=== PATIENT | female | born 1965 | race Caucasian/White ===

== ENCOUNTER 2022-07-13 09:30 | Outpatient (CLI) | payer OTHER, SELFPAY ==
[2022-07-13 13:45] LABS: INR 1.06 (0.91-1.10); Partial Thromboplastin Time* 30 Seconds (23-33); Prothrombin Time 14.3 Seconds
[2022-07-13 14:43] LABS: Hepatitis C Virus Antibody* Negative (Negative)
[2022-07-13 15:14] LABS: Albumin* 4.5 g/dL (3.3-5.0); Chloride* 102 mmol/L (96-114); Sodium* 139 mmol/L (135-149)
[2022-07-13 15:15] LABS: Potassium* 4.3 mmol/L (3.6-5.1)
[2022-07-13 15:16] LABS: Amylase* 91 U/L (18-89)
[2022-07-13 15:17] LABS: Alanine Aminotransferase* 43 U/L (4-35); Alkaline Phosphatase* 55 U/L (40-150); Aspartate Amino Transferase* 29 U/L (12-35); Bilirubin Total* 0.5 mg/dL (0.1-1.5); Blood Urea Nitrogen* 14 mg/dL (7-30); Calcium* 9.4 mg/dL (8.4-10.6); Carbon Dioxide* 30 mmol/L (20-32); Cholesterol* 268 mg/dL (90-199); Creatinine* 0.6 mg/dL (0.5-1.5); Estimated Glomerular Filt Rate 104 ml/min; Glucose* 95 mg/dL (60-115); HDL Cholesterol* 73 mg/dL (>=50); Lipase* 100 U/L (23-300); Total Protein* 6.9 g/dL (6.0-8.3)
[2022-07-13 15:18] LABS: LDL Cholesterol Calculated 175 mg/dL (<100); Triglycerides* 102 mg/dL (40-149)
--- NOTE | 2022-07-15 09:49 | ONC.NURNOTE ---
Patient was referred to us for a superficial venous thrombosis of the arm. Reading through note it appears that patient is being seen by a medical oncologist. Simulation Analyst called patient and she is being seen by [facility] in [place], she was told that they would be able to address this rather than setting up a new consultation. Patient would prefer this, so [place] office was called and notified that this referal needs to be sent to them.
== END 2022-07-13 09:31 | disposition home or self-care (01) ==
PROVIDERS: PCP Family Medicine; Visit Provider Family Medicine
DX: Z01.419 Encounter for gynecological examination (general) (routine) without abnormal findings (principal); R53.83 Other fatigue; I82.619 Acute embolism and thrombosis of superficial veins of unspecified upper extremity; Z13.6 Encounter for screening for cardiovascular disorders; Z87.19 Personal history of other diseases of the digestive system; Z11.59 Encounter for screening for other viral diseases
CPT/HCPCS: 80053; 80061; 82150; 83690; 84443; 85610; 85730; 86803

== ENCOUNTER 2023-03-12 10:20 | Outpatient (CLI) | payer OTHER, SELFPAY ==
[2023-03-12 13:12] LABS: Magnesium* 1.9 mg/dL (1.5-2.6)
[2023-03-12 13:51] LABS: Ferritin* 52.5 ng/mL (11.1-264.0)
== END 2023-03-12 10:21 | disposition home or self-care (01) ==
PROVIDERS: PCP Family Medicine; Visit Provider Family Medicine
DX: R19.7 Diarrhea, unspecified (principal); R53.83 Other fatigue; E78.5 Hyperlipidemia, unspecified; E55.9 Vitamin D deficiency, unspecified; R63.5 Abnormal weight gain
CPT/HCPCS: 80053; 82150; 82728; 83690; 83735; 84443

== ENCOUNTER 2023-03-16 13:52 | Outpatient (CLI) | payer OTHER, SELFPAY ==
--- OUTSIDE RECORDS SUMMARY | 2023-03-19 17:28 | XMS_ITS | Patient Health Record ---
Author Name Unknown Organization [employer] e Address [address] [address] Care Team Providers Care Brinell Tester Name Role Phone Facundo Elva Unavailable [phone] Chan Liriano Unavailable [phone] Tayo Do Unavailable [phone] Katy Zaragoza Unavailable [phone] [place] [facility] Emergency Department, Mammography Unavailable Unav ailable Kelly Conner Unavailable Unavailable Ирина Henriquez Unavailable [phone] Monica Tellez Unavailable [phone] PROBLEMS Type Condition ICD9-CM Code [id number] Code Onset Dates Condition Status W/U Status Risk SNOMED Code Notes Problem Endometrial cancer C54.1 confirmed 552963838 Problem Symptomatic 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 confirmed 761499547 Problem Menopausal and female climacteric states N95.1 confirmed 215721001 Problem Excessive or frequent menstruation N92.0 confirmed 507942825 Problem Postmenopausa l bleeding N95.0 confirmed 16088187 Problem Endometrial 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 [address] [place], [place] [id number] Jul, Elva Loredo [facility] [address] [place] [address] Jun, Elva Loredo Symptomatic 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 and Endometrial cancer C54.[address] [facility] [address] [place], [place] [id number] Jun, Mammography [facility] Breast cancer screening Z12.[address] [facility] [address] [place], [place] [id number] Nov, [address] [place] [phone] Aug, [facility] [address] [place], [place] [id number] Apr, Tayo [address] [place] [phone] January, [facility] [address] [place], [place] [id number] Dec, [facility] Endometrial carcinoma C54.[address] [place] [phone] Dec, [facility] [address] [place], [place] [id number] Dec, [facility] [address] [place], [place] [id number] Dec, [facility] Endometrial cancer C54.1 [facility] [address] [place] [address] Dec, Tayo [place] Postmenopausal bleeding N95.0 and Endometrial adenocarcinoma C54.[address] [facility] [address] [place], [place] [id number] Dec, Tayo [place] Mass of urethra N36.8 ; Urethral diverticulum N36.1 and Excessive or frequent menstruation N92.0 [place] [address] [place], [place] [id number] Dec, Tayo [facility] [address] [place], [place] [address] [facility] [address] [place] [phone] Dec, Tayo [facility] [address] [place], [place] [id number] Nov, Tayo Agarwalford [facility] [address] [place] [address] Nov, Tayo Agarwalford Hematuria R31.[address] [facility] [address] [place], [place] [id number] Nov, Tayo Agarwalford Hematuria R31.9 and Postmenopausal bleeding N95.0 [place] [address] [place], [place] [id number] Nov, Tayo Agarwalford Postmenopausal bleeding N95.0 and Fibroid D21.9 [address] [facility] [address] [place] [phone] Nov, Tayo [facility] [address] [place], [place] [id number] Jun, Tayo [address] [place] [phone] Jun, Tayo [facility] [address] [place], [place] [id number] Jun, Tayo [place] Acute vulvitis N76.[address] [place] [phone] Jun, Tayo [address] [facility] [address] [place] [phone] Jun, Tayo [facility] [address] [place], [place] [id number] May, Tayo [place] Vulvar cyst N90.[address] [facility] [address] [place], [place] [id number] May, Tayo [place] Fibroid D21.9 and Menopause Z78.0 [place] [address] [place], [place] [id number] 29 May, 2020 Tayo Do Fibroid D21.[address] [facility] [address] [place], [place] [id number] 29 May, 2020 Mammography [facility] Breast cancer screening Z12.31 [facility] [address] [place] [address] [place] [phone] 16 May, 2020 [facility] [address] [place] [id number] 15 May, 2020 Tayo Do Menopausal and female climacteric states N95.1 ; Thyroid disorder screening Z13.29 ; Cervical cancer screening Z12.4 and Encounter for screening for human papillomavirus (HPV) Z11.[address] [facility] [address] [place], [place] [id number] 15 May, 2020 Tayo Agarwalford Pain passing urine R30.9 ; Vulvar cyst N90.7 ; Fibroid D21.9 ; Hot flashes R23.2 and Annual visit for general adult medical examination with abnormal findings Z00.[address] [facility] [address] [place] [id number] Apr, Tayo Do [facility] [address] [place] [address] [place] [phone] Jul, Kelly Conner [facility] [address] [place] [address] [place] [phone] Jun, Kellyalicja Conner [address] [place] [phone] May, Kellyalicja Conner [facility] [address] [place] [address] [place] [phone] Mar, Kelly Conner [facility] [address] [place], [place] [id number] Mar, Ирина Henriquez [facility] [address] [place], [place] [id number] Feb, Kelly Ubaldo [facility] [address] [place], [place] [id number] Feb, Ирина Henriquez Breast cancer screening Z12.31 [facility] [address] [place] [address] January, Monica Tellez [facility] [address] [place] [address] January, Monica Tellez [facility] [address] [place], [place] [id number] January, Tayo Do Fibroids D21.[address] [facility] [address] [place], [place] [id number] January, Tayo Do Burning with urination R30.0 SOCIAL HISTORY Tobacco Use: Social History Observation Description Date Details (start date - stop date) Never Smoker Sex Assigned At : Social History Observation Description Sex Assigned At Unknown Alcohol Screen (Audit-C) Question Answer Notes Did you have a drink containing alcohol in the p ast year? Yes Points 0 Interpretation Negative Tobacco Use/Smoking Question Answer Notes Are you a never smoker REASON FOR REFERRAL from 1965 to 2023-03-19 Reason [place] [facility] Diagnosis 1 Endometrial cancer ( C54.1) Referral Organization [facility] Referring Provider First Name Tayo Referring Provider Last Name [place] Referring Provider Specialty Obstetricia n and equipment operator wage hand Referred Provider Specialty Oncology Referral Priority Routine General Notes Referral submitted v [facility] website. Logan Sloan 01/02/2021 10:17:23 AM > Logan Sloan 03/11/2021 3:50:08 PM >Patient was seen at [facility] on 02/15 instead. Note is on file and routed to provider. Reason [facility] er Diagnosis 1 Endometrial cancer ( C54.1) Referral Organization [facility] Referring Provider First Name Tayo Referring Provider Last Name [place] Referring Provider Specialty Obstetricia n and equipment operator wage hand Referred Provider Specialty Oncology Referral Priority Routine General Notes Cancer Clinic ([facility]) [facility] Surgery [address] [address] Appointments, Provider Referrals and Information: [phone] New Patient Appointments: [phone] Logan Sloan 01/02/2021 10:20:57 AM >faxed Nathalia,Ia 03/14/2021 9:22:40 AM >patient was seen on 01/14/2021. Note rcvd. VITAL SIGNS from 1965 to 2023-03-19 Height 61.0 in Jun, Weight 143.8 lbs Jun, BMI 27.17 kg/m2 Jun, Blood pressure systolic 102 mm Hg Jun, Blood pressure diastolic 62 mm Hg Jun, MEDICATIONS Medication SIG (Take, Route, Frequency, Duration) Notes Start Date End Date Status Multivitamin Active RESULTS from 1965 to 2023-03-19 Component Value Reference Range Notes MRI : Abdomen Reviewed date:01/03/2021 16:34:29 Interpretation: Performing Lab: Notes/Report: TISSUE PATHOLOGY Reviewed date:01/02/2021 08:39:10 Interpretation: Performing Lab:, [place], [facility], OpkzcmzoycMB[address] Georgi Cardona Notes/Report: CLINICAL INFORMATION PATHOLOGIST REPORT NOTES CYTOLOGY, NON-CAN FILLING AND CLOSING MACHINE TENDER Reviewed date:12/31/2020 15:01:49 Interpretation: Performing Lab:, [place], [facility]-[id number], RvtnbrioitXQ[address] Georgi Cardona Notes/Report: PATHOLOGIST NON-CAN FILLING AND CLOSING MACHINE TENDER, SPECIMEN A Reviewed date:01/03/2021 16:36:53 Interpretation: Performing Lab:, [place], [facility], UvvwgtqwtqUS[address] Georgi Cardona Notes/Report: A DIAGNOSIS A GROSS DESCRIPTION A SOURCE TISSUE, 2 SPECIMENS (+2 unit s) Reviewed date:01/03/2021 16:36:53 Interpretation: Performing Lab:, [place], [facility], [id number] Georgi Cardona Notes/Report: B COMMENT B DIAGNOSIS B GROSS DESCRIPTION B SOURCE MRI : Pelvis Reviewed date:01/03/2021 16:33:47 Interpretation: Performing Lab: Notes/Report: CULTURE, URINE, ROUTINE Reviewed date:12/10/2020 10:12:55 Interpretation: Performing Lab:, [place], [facility], [place] Baldwin[place]ajLI[address] Georgi Cardona M.D. Notes/Report: CULTURE, URINE, ROUTINE SEE NOTE TISSUE, SPECIMEN A Reviewed date:06/20/2020 18:57:41 Interpretation: Performing Lab:, [place], [facility]-[address], IfyrlxezaeRR[address] Georgi Cardona Notes/Report: A DIAGNOSIS A GROSS DESCRIPTION A SOURCE TISSUE PATHOLOGY Reviewed date:06/20/2020 18:57:41 Interpretation: Performing Lab:, [place], [facility]-[address], LtoewpifdzNU[address] Georgi Cardona Notes/Report: CLINICAL INFORMATION PATHOLOGIST THINPREP TIS AND HPV mRNA E6 /E7 (30 yrs and over) Reviewed date:06/14/2020 17:35:50 Interpretation: Performing Lab:, [place], [facility], UytavvfsfqXU[address] Georgi Cardona Notes/Report: CLINICAL INFORMATION: COMMENT COMMENT: PRINTED CIRCUIT BOARDS CONTACT PRINTER: HPV mRNA E6/E7 Not Detected Not Detected INTERPRETATION/RESULT: LMP: PREV. BX: N/A PREV. PAP: SOURCE: STATEMENT OF ADEQUACY: T3, FREE Reviewed date:06/05/2020 08:50:51 Interpretation: Performing Lab:, [facility] [facility] WwovJY[address] Georgi Cardona M.D. Notes/Report: T3, FREE 2.8 pg/mL 2.3-4.2 pg/mL Cortisol (IH) Reviewed date:06/05/2020 08:50:51 Interpretation: Performing Lab:,Lab: Access 2 [employer], Access 2 Notes/Report: Cortisol 6.4 ug/dL 3.0 to 22.0 ug/dL DHEA-S (IH) Reviewed date:06/05/2020 08:50:51 Interpretation: Performing Lab:,Lab: Access 2 [employer], Access 2 Notes/Report: DHE-S 113 ug/dL 51 to 391 ug/dL FSH (IH) Reviewed date:06/05/2020 08:50:51 Interpretation: Performing Lab:,Lab: Access 2 [employer], Access 2 Notes/Report: hFSH 84.1 mIU/mL 1.8 to 22.5 mIU/mL LH (IH) Reviewed date:06/05/2020 08:50:51 Interpretation: Performing Lab:,Lab: Access 2 [employer], Access 2 Notes/Report: hLH 43.2 mIU/mL 2.1 to 103.3 mIU/mL Prolactin (IH) Reviewed date:06/05/2020 08:50:51 Interpretation: Performing Lab:,Lab: Access 2 [employer], Access 2 Notes/Report: PRL 8.0 ng/mL 2.7 to 26.7 ng/mL Testosterone, Total (IH) Reviewed date:06/05/2020 08:50:51 Interpretation: Performing Lab:,Lab: Access 2 [employer], Access 2 Notes/Report: Testo 23 ng/dL 70 to 150 ng/dL TSH (IH) Reviewed date:06/05/2020 08:50:51 Interpretation: Performing Lab:,Lab: Access 2 [employer], Access 2 Notes/Report: TSH3 1.73 uIU/mL 0.45 to 5.33 uIU/mL Sex Hormone Binding Globulin (IH) Reviewed date:06/05/2020 08:50:52 Interpretation: Performing Lab:,Lab: Access 2 [employer], Access 2 Notes/Report: SHBG 45 nmol/L 13 to 136 nmol/L Sensitive Estradiol (IH) Reviewed date:06/05/2020 08:50:52 Interpretation: Performing Lab:,Lab: Access 2 [employer], Access 2 Notes/Report: SNSE2 7 pg/mL 20 to 433 pg/mL Testosterone, Free (IH) Reviewed date:06/05/2020 08:50:52 Interpretation: Performing Lab:,Lab: Access 2 [employer], Access 2 Notes/Report: Fr Testo 1.76 pg/mL 0.20 to 5.50 pg/mL Urinalysis, Routine - IH Reviewed date:06/04/2020 12:12:07 Interpretation: Performing Lab:,Lab: [facility], [facility], Tenant Coordinator: 01 Notes/Report: Bilirubin neg Negative Blood neg Negative Glucose neg Negative Ketone neg Negative Leukocytes neg Negative Nitrite neg Negative pH 6.0 5.0 - 7.0 Protein neg Negative Specific [place] 1.010 1.000 - 1.030 Urobilinogen 0.2 mg/dL 0.2-1 mg/dL Urinalysis, Routine - IH Reviewed date:01/26/2019 08:20:54 Interpretation: Performing Lab:,Tenant Coordinator: 01 Notes/Report: Bilirubin neg Negative Blood neg Negative Glucose neg Negative Ketone neg Negative Leukocytes neg Negative Nitrite neg Negative pH 6.0 5.0 - 7.0 Protein neg Negative Specific [place] 1.030 1.000 - 1.030 Urobilinogen 0.2 mg/dL 0.2-1 mg/dL mg/dL REASON FOR VISIT No Information MEDICAL (GENERAL) HISTORY Type Description Date Medical History Chicken pox Surgical History hysterectomy Hospitalization History No know Hospitalization history MENTAL STATUS No Information ASSESSMENTS Encounter Date Diagnosis Assessment Notes Treatment Notes Treatment Clinical Notes Jun, Symptomatic postsurgical menopause (ICD-10 - E89.41) Jun, Endometrial cancer (ICD-10 - C54.1) Jun, Breast cancer screening (ICD-10 - Z12.31) Dec, Endometrial carcinoma (ICD-10 - C54.1) Dec, Other I have arranged for her to be be seen by [facility]. She will follow up PRN here. Taoy Do MD , Total face to face time 20 minutes, with >50% spent counseling regarding diagnosis, risk and benefits of various treatment plans and expected outcomes. Dec, Endometrial cancer (ICD-10 - C54.1) Dec, Other Endometrial bio psy shows endometrial carcinoma. Pending final report. She was previously scheduled for MRI to rule out urethral diverticulum. We will expand this to do ABD and pelvis as well to rule out lymphadenopathy or other signs of cancer. Follow up with me on Wednesday to discuss [facility] pathology and MRI as well as plans. She prefers to see a surgeon at the [facility]. Tayo Do MD , Total face to face time 30 minutes, with >50% spent counseling regarding diagnosis, risk and benefits of various treatment plans and expected outcomes. This visit was conducted with the use of audio and video telecommunications system that permits real time communication between the patient and provider. Patient consent for virtual visit was obtained. Originating site: [facility] Distant site: pt home Start time: 4:04 Stop time:4:40 Dec, Mass of urethra (ICD-10 - N36.8) Plan MRI to rule out urethral diverticulum. Tayo Do MD , Total face to face time 20 minutes, with >50% spent counseling regarding diagnosis, risk and benefits of various treatment plans and expected outcomes. Dec, Endometrial adenocarcinoma (ICD-10 - C54.1) Dec, Urethral diverticulum (ICD-10 - N36.1) Dec, Postmenopausal bleeding (ICD-10 - N95.0) Dec, Excessive or frequent menstruation (ICD-10 - N92.0) Nov, Hematuria (ICD-10 - R31.9) We discussed her concerns at great length. Plan Endosee of bladder and uterus wtih endometrial biopsy and urinary cytology. Tayo Do MD , Total face to face time 20minutes, with >50% spent counseling regarding diagnosis, risk and benefits of various treatment plans and expected outcomes. Nov, Hematuria (ICD-10 - R31.9) Nov, Postmenopausal bleeding (ICD-10 - N95.0) Nov, Fibroid (ICD-10 - D21.9) Nov, Postmenopausal bleeding (ICD-10 - N95.0) Jun, Acute vulvitis (ICD-10 - N76.2) Jun, Other Patient with cellulitis. I normally would treat with bactrrim DS and keflex. However, she is allergic to penicillin and sulfa. Plan clindamycin po and metrogel local. Dilfucan as she notes high frequency of yeast infections with antibiotics. Tayo Do MD , Total face to face time 25 minutes, with >50% spent counseling regarding diagnosis, risk and benefits of various treatment plans and expected outcomes. May, Breast cancer screening (ICD-10 - Z12.31) May, Fibroid (ICD-10 - D21.9) May, Vulvar cyst (ICD-10 - N90.7) May, Fibroid (ICD-10 - D21.9) May, Menopause (ICD-10 - Z78.0) May, Other Plan pelvic ult rasound every year. She notes hot flashes, decrease energy and low sex desire but has decided to observe. She does not desire therapy for this. Tayo Do MD , Total face to face time 15 minutes, with >50% spent counseling regarding diagnosis, risk and benefits of various treatment plans and expected outcomes. May, Pain passing urine (ICD-10 - R30.9) Plan pelvic ultrasound in 1 week to evaluat fibroid status. Also mammogram next week. See me after to discuss ultrasound and hormonal labs. Also for removal of vulvar cyst. Tayo Do MD , Total face to face time 15 minutes, with >50% spent counseling regarding diagnosis, risk and benefits of various treatment plans and expected outcomes. May, Menopausal and female climacteric states (ICD-10 - N95.1) May, Vulvar cyst (ICD-10 - N90.7) May, Thyroid disorder screening (ICD-10 - Z13.29) May, Cervical cancer screening (ICD-10 - Z12.4) May, Fibroid (ICD-10 - D21.9) May, Hot flashes (ICD-10 - R23.2) May, Encounter for screening for human papillomavirus (HPV) (ICD-10 - Z11.51) May, Annual visit for general adult medical examination with abnormal findings (ICD-10 - Z00.01) Jul, Other LHR #6 755 12mm 20j 20pw dental implants Jun, Other LHR Chin only , careful of tooth implants, 755 12mm 18j 20pw May, Other [facility] Chin 755 12 mm 17j 20pw Mar, Other LHR chin 755 12 mm 16j 20pw Feb, Breast cancer screening (ICD-10 - Z12.31) Feb, Other [facility] Chin 755 12 mm 15j 20pw January, Other LHR chin 755; 1 5mm; 14j; 20pw January, Fibroids (ICD-10 - D21.9) January, Burning with urination (ICD-10 - R30.0) Patient with complaint of pain with urination. Urinalysis is normal. Plan evauation with cystoscopy, urodynamics and postassium sensitivity test. Pelvic ultrasound ordered as well. Follow up in 6 weeks. Tayo Do MD , Total face to face time 15 minutes, with >50% spent counseling regarding diagnosis, risk and benefits of various treatment plans and expected outcomes. PLAN OF TREATMENT Treatment Notes Assessment Notes Clinical Notes Mass of urethra Plan MRI to rule out urethral diverticulum. Tayo Do MD , Total face to face time 20 minutes, with >50% spent counseling regarding diagnosis, risk and benefits of various treatment plans and expected outcomes. Pain passing urine Plan pelvic ultrasou nd in 1 week to evaluat fibroid status. Also mammogram next week. See me after to discuss ultrasound and hormonal labs. Also for removal of vulvar cyst. Tayo Do MD , Total face to face time 15 minutes, with >50% spent counseling regarding diagnosis, risk and benefits of various treatment plans and expected outcomes. Burning with urination Patient with comp laint of pain with urination. Urinalysis is normal. Plan evauation with cystoscopy, urodynamics and postassium sensitivity test. Pelvic ultrasound ordered as well. Follow up in 6 weeks. Tayo Do MD , Total face to face time 15 minutes, with >50% spent counseling regarding diagnosis, risk and benefits of various treatment plans and expected outcomes. Hematuria We discussed her con cerns at great length. Plan Endosee of bladder and uterus wtih endometrial biopsy and urinary cytology. Tayo Do MD , Total face to face time 20minutes, with >50% spent counseling regarding diagnosis, risk and benefits of various treatment plans and expected outcomes. Pending Tests Test Name Order Date MAMMOGRAM 2022-07-08 Referrals Referral Date Details [place] [facility] Insurance Providers Payer Name Payer Address Payer Phone Insured Name Patient Relationship to Insured Coverage Start Date Coverage End Date Subscriber Number Group Number [employer] 2020 [address] [facility] [address] Jens Dunne Self - patient is the insured 2 [id number]
--- OUTSIDE RECORDS SUMMARY | 2023-03-19 17:28 | XMS_ITS | Continuity of Care Document ---
Author Name Unknown Organization [facility] Address [address] [address] [place] [address] Phone Care Team Providers Care Contracts Paralegal Name Role Phone Timothy Saenz MD Unavailable Unavailable Allergies, Adverse Reactions, Alerts Substance Reaction Status Criticality ampicillin bad diarhea Active No Information Sulfa (Sulfonamide Antibiotics) Rash Active No Information PENICILLIN UnknownDiarrhea Active No Informati on Medications Medication Instructions Dosage Effective Dates (start - stop) Status Comments No Drug Therapy Prescribed Procedures Procedure Date New Level 3 or 30-44 min Advance Directives Directive Yes / No Effective Date File Name No Information Encounters Encounter Description Practice Location Reason(s) For Visit Diagnoses Date Provider Providers Copied on Encounter New Level 3 or 30-44 min [facility] [place], [address] [address], [place], [place], [id number], [phone] [facility] GI Symptoms or Concerns (chief complaint) Benign gastric polypAbdominal pain, unspecified abdominal location Dec-0 0 Dany Aguirre. [address], [id number], [place]. [phone] Referring Provider: Bernard Killian MD, [address], [place], [address]. tel:[phone] [facility] [place], [address] [address], [place], [id number], [phone] [facility] No Information Dec-0 0 Dany Aguirre. [address], [id number], [place]. tel:[phone] [facility], [address] [address], [place], [place], [id number], [place] tel:[phone] No Information 0 No Information Referring Provider: Bernard Killian MD, [address], [place], [address]. tel:[phone] Family History Family Member Type Diagnosis Age At Onset Mother Problem (finding) malignant neoplasm of p ancreas Father Problem (finding) prostate cancer Father Problem (finding) GERD Immunizations Vaccine Date Status Comments tetanus toxoid, reduced diphtheria toxoid, and acellular pertussis vaccine, adsorbed administered Note: [facility] bi-direct ional interface ; Source: Other Registry Payers Payer name Insurance type Covered libertarian ID Authoriza tion(s) [employer] CI [id number] Social History Type Description Quantity Date Captured Comments Alcohol Use Details Caffeine Use Details Unknown Tobacco Use Status Current non-smoker Smoking Status Never smoker Non-Smoking Tobacco Use Details : No Details Available : No Details Available Sex Female Vital Signs Date / Time: Height Weight BMI Pulse Rate Blood Pressure Temperature Respiratory Rate Body Surface Area Head Circumference Head Circ. Percentile Wt./Lonny. Percentile BMI percentile Pulse Ox Inhaled Ox 11:07 AM 62.00 in 70.307 kg (155.00 lbs) 28.3 5 kg/m eter (2) Chief Complaint And Reason For Visit From encounter dated 08/21/2020 11:01'. GI Symptoms or Concerns (chief complaint). Description: Ms. Dunne is having a virtual visit today at the request of Dr. Killian to discuss 2 different GI issues. One is gastric polyps. She used to have end[place]op[place]. On at least 1 occasion, there was a polyp that was biopsied. This year, she had an upper endoscopy that showed multiple sessile polyps in the stomach. None of them were biopsied. She is quite concerned about the appearance of many polyps and wonderswhat appropriate followup is. She also has an intermittent pain to the left of the umbilicus and above it. This is in a very discrete location that her fingertip can cover. It comes and goes over thecourse of several years. She recently had a normal CT scan of the abdomen. Her mother had pancreatic cancer. She has been eating very healthy recently and that helps control upper GI symptoms. She has been on a diet free of gluten, dairy, and sugar. She also has been taking turmeric and júnior. Shehas tried proton pump inhibitors intermittently, when traveling or during the spring and fall. These medications including Prilosec seemed to give her more bloating and gas. She overall feels that her GI system is quite healthy. She did just have a normal colonoscopy as well. Reason For Referral Reason For Referral No Information Plan Of Treatment Date Type Action Status No Information History Of Present Illness Encounter Date Complaint History Of Prese nt Illness GI Symptoms or Concerns Ms. Seng wilkes is having a virtual visit today at the request of Dr. Killian to discuss 2 different GI issues. One is gastric polyps. She used to have endoscopies yearly [place]. On at least 1 occasion, there was a polyp that was biopsied. This year, she had an upper endoscopy that showed multiple sessile polyps in the stomach. None of them were biopsied. She is quite concerned about the appearance of many polyps and wonders what appropriate followup is. She also has an intermittent pain to the left of the umbilicus and above it. This is in a very discrete location that her fingertip can cover. It comes and goes over the course of several years. She recently had a normal CT scan of the abdomen. Her mother had pancreatic cancer. She has been eating very healthy recently and that helps control upper GI symptoms. She has been on a diet free of gluten, dairy, and sugar. She also has been taking turmeric and júnior. She has tried proton pump inhibitors intermittentl Functional Status Date Functional Assessmen t No Information Medications Administered Medication Instructions Dosage Effective Dates (start - stop) Status Comments No Drug Therapy Prescribed Instructions Date Instruction Additional Infor mation No Information Assessments Type Assessment Date assessment Benign gastric polyp assessment Abdominal pain, unspecified abdo elodia location Patient Care Teams Name Effective Dates (start - stop) Status Members No Information
== END 2023-03-16 13:53 | disposition home or self-care (01) ==
LOC: NFLDREF 03-19 17:27
PROVIDERS: PCP Family Medicine; Referring Provider Family Medicine; Visit Provider Family Medicine
DX: R19.7 Diarrhea, unspecified (principal); R23.2 Flushing
CPT/HCPCS: 83497

== ENCOUNTER 2023-09-06 10:31 | Outpatient (CLI) | payer OTHER, SELFPAY | END 2023-09-06 10:32 | disposition home or self-care (01) | PROVIDERS: PCP Family Medicine; Visit Provider Family Medicine | DX: Z00.00 Encounter for general adult medical examination without abnormal findings (principal); R53.83 Other fatigue; E78.5 Hyperlipidemia, unspecified; E55.9 Vitamin D deficiency, unspecified; D72.819 Decreased white blood cell count, unspecified; R68.89 Other general symptoms and signs; R46.89 Other symptoms and signs involving appearance and behavior | CPT/HCPCS: 80053; 80061; 84443; 86376 ==

== ENCOUNTER 2024-01-10 14:41 | Outpatient (CLI) | payer OTHER, SELFPAY ==
--- OUTSIDE RECORDS SUMMARY | 2024-01-10 14:44 | XMS_ITS ---
Author Name Unknown Organization [facility] Address [address] [place] [address] Care Team Providers Care Fundraising Sale Representative Name Role Phone Unavailable Unavailable Unavailable Surgery Details Not on file Complications Check Surgery Details section. Procedure Estimated Blood Loss Check Surgery Details section. Procedure Findings Check Surgery Details section. Procedure Specimens Taken Check Surgery Details section.
--- OUTSIDE RECORDS SUMMARY | 2024-01-10 14:44 | XMS_ITS | Encounter Summary ---
Author Name Unknown Organization [facility] Address [address] [place] [address] Care Team Providers Care Building Insulation Installer Name Role Phone Elsewhere, Pcp Primary Care Provider Unavailabl e Encounter Details Date Type Department Care Team (Latest Contact Info) Description 10/21/2023 2:30 PM COLOR CONTROL OPERATOR Clinical Support Department of Integrative Medicine in [address] [phone] Ирина Franks M.D. [address] [place] [phone] Jonel Wagner [address] [place] [phone] Discharge Disposition: Home or Self Care Social History Tobacco Use Types Packs/Day Years Used Date Smoking Tobacco: Never Nutrition Answer Date Recorded Nutrition: EVOO Fat Source Unknown 10/14 Nutrition: Servings of Fruits/Vegetables per Day Not on file 10/14/2023 Dental Answer Date Recorded Dental: Regular Dentist Unknown 10/14/19 Sex and Gender Information Value Date Recorded Sex Assigned at Not on file Gender Identity Not on file Sexual Orientation Not on file documented as of this encounter Progress Notes * Jonel Wagner - 10/21/2023 2:30 PM CST Karlene contacted me about yoga classes in [place]. I don't teach there any longer so I suggested that she have a private yoga session to review basic poses and attend a Zoom class. It was very nice to see her again after several years. She updated me on her health history. She was diagnosed with endometrial cancer a few years ago and had surgery and chemo. 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 She also feels that her posture has begun to round more forward after cancer treatment. She walks regularly for exercise. She has pain on the left side of her low back, near the SI joint.She also has chronic neck pain. She sees Nickie Muniz regularly for point of care technician. I started our session with diaphragmatic breathing and the active exhalation. I went through basic supine poses which would be helpful for her low back and neck pain. She said she felt great after our session. I will design a 20-30 minute practice for her to do at home and send it to her. She will return in 2 weeks for another private session to review some of the more common standing poses. R CONTROL OPERATOR documented in this encounter Plan of Treatment Not on file documented as of this encounter Visit Diagnoses Not on filedocumented in this encounter Care Teams Building Insulation Installer Relationship Specialty Start Date End Date Elsewhere, Pcp PCP - General 09/02/18 documented as of this encounter
--- OUTSIDE RECORDS SUMMARY | 2024-01-10 14:44 | XMS_ITS | Encounter Summary ---
Author Name Unknown Organization [facility] Address [address] [place] [address] Care Team Providers Care Surveyor Rod Helper Name Role Phone Elsewhere, Pcp Primary Care Provider Unavailabl e Encounter Details Date Type Department Care Team (Latest Contact Info) Description 11/04/2023 1:00 PM TOOL DESIGN DRAFTER Clinical Support Department of Integrative Medicine in [address] [phone] Ирина Franks M.D. [address] [place] [address] Jonel Wagner [address] [place] [phone] Discharge Disposition: Home or Self Care Social [...] encounter Progress Notes * Jonel Wagner - 11/04/2023 1:00 PM CST This was my second private session with this client. She had some questions about the practice thatI had given her a few weeks ago. We went over the poses and the breathing cues. I added a glute stretch because she has been having sciatic pain. I introduced a standing forward bend, emphasizing bending at the hips and keeping the upper back straight with knees slightly bent. We practiced the standing forward bend without arms and with arms. She will continue to do the practice for three weeks and then return for another private session where we will practice some standing poses. The goal is to get her comfortable enough to start attending virtual yoga classes with me. DESIGN DRAFTER documented in this encounter Plan of Treatment Not on file documented as of this encounter Visit Diagnoses Not on filedocumented in this encounter Care Teams Surveyor Rod Helper Relationship Specialty Start Date End Date Elsewhere, Pcp PCP - General 09/02/18 documented as of this encounter
--- OUTSIDE RECORDS SUMMARY | 2024-01-10 14:44 | XMS_ITS | Clinical Summary ---
Author Name Unknown Organization [facility] Address [place], [place] [address] Care Team Providers Care Cash Clerk Name Role Phone Bernard Killian MD Primary Care Provider [phone] Allergies Active Allergy Reactions Criticality Noted Date Comments Penicillins Diarrhea,Rash 02/11/2021 Sulfa (Sulfonamide Antibiotics) *Unknown 01/19 Medications Medication Sig Dispensed Refills Start Date End Date Status oxyCODONE (ROXICODONE) 5 mg immediate release tabletIndications: Endometrial cancer (HC) Take 1-2 Tablets (5-10 mg) by mouth every 4 hours if needed for Pain (For moderate to severe pain.). 15 Tablet 02/18/2021 Active acetaminophen (TYLENOL) 325 mg tablet Take 2 Tablets (650 mg) by mouth every 4 hours if needed (For mild pain.). Max acetaminophen dose: 4000mg in 24 hrs. 02/18/2021 Active ibuprofen (ADVIL; MOTRIN) 600 mg tabletIndications: Endometrial cancer (HC) Take 1 Tablet (600 mg) by mouth every 6 hours if needed. Maximum of 3200 mg in 24 hours. 20 Tablet 02/18/2021 Active sennosides-docusat e (SENOKOT S) (8.6-50 mg) tablet Take 1 Tablet by mouth 2 times daily if needed for Constipation. 02/18/2021 Active Social History Tobacco Use Types Packs/Day Years Used Date Smoking Tobacco: Never Smokeless Tobacco: Never Alcohol Use Standard Drinks/Week Comments Yes 0 (1 standard drink = 0.6 oz pur e alcohol) rare Sex and Gender Information Value Date Recorded Sex Assigned at Not on file Gender Identity Not on file Sexual Orientation Not on file Obstetrics History Last Filed Vital Signs Vital Sign Reading Time Taken Comments Blood Pressure 136/75 02/18/2021 3:50 PM CDT Pulse 65 02/18/2021 3:50 PM CDT Temperature 37.1 ??C (98.7 ??F) 02/18/2021 3:50 PM CD T Respiratory Rate 16 02/18/2021 3:50 PM CDT Oxygen Saturation 98% 02/18/2021 3:50 PM CDT Inhaled Oxygen Concentration - - Weight 69.4 kg (153 lb) 02/18/2021 7:02 AM CDT Height 156.2 cm (5' 1.5) 02/13/2021 5:15 PM CDT Body Mass Index 28.44 02/13/2021 5:15 PM CDT Plan of Treatment Upcoming Encounters Date Type Department Care Team (Late st Contact Info) Description 01/10/2024 3:00 PM CDT Ancillary Procedure [facility] & [address] [address] Advance Directives * Full Code (Latest Code Status on File) Date Activated Date Inactivated Comments 02/18/2021 6:53 AM 02/18/2021 6:02 PM Question Answer Comments Code Status Discussion: Not Discussed Care Teams Cash Clerk Relationship Specialty Start Date End Date Bernard Killian MD [address] [place] [address] PCP - General Family Practice 01/17/21
--- OUTSIDE RECORDS SUMMARY | 2024-01-10 14:44 | XMS_ITS | Referral Summary ---
Author Name Unknown Organization [facility] Address [address] [place] [address] Care Team Providers Care Country Printer Apprentice Name Role Phone Elsewhere, Pcp Primary Care Provider Unavailabl e Source Comments Patient records contain information from all sites at [facility]. For routine questions regarding patient records, call [phone] during business hours, M-F 8:00 AM - 5:00 PM Central Time. Record requests for emergency care only can be directed to [phone] at any time.[facility] Encounters Date Type Department Care Team Description 11/04/2023 1:00 PM CLINICAL RESEARCH ADMINISTRATOR Clinical Support Department of Integrative Medicine in [address] [phone] Ирина Franks M.D. Hoffman, Michele R Discharge Disposition: Home or Self Care 10/21/2023 2:30 PM CLINICAL RESEARCH ADMINISTRATOR Clinical Support Department of Integrative Medicine in [address] [phone] Ирина Franks M.D. Hoffman, Michele R Discharge Disposition: Home or Self Care from Last 3 Months Social History Tobacco Use Types Packs/Day Years Used Date Smoking Tobacco: Never Nutrition Answer Date Recorded Nutrition: EVOO Fat Source Unknown 10/14 Nutrition: Servings of Fruits/Vegetables per Day Not on file 10/14/2023 Dental Answer Date Recorded Dental: Regular Dentist Unknown 10/14/19 24 Sex and Gender Information Value Date Recorded Sex Assigned at Not on file Gender Identity Not on file Sexual Orientation Not on file Last Filed Vital Signs Vital Sign Reading Time Taken Comments Blood Pressure 121/69 11/17/2012 1:01 PM CLINICAL RESEARCH ADMINISTRATOR Vital sign result from Clinical Notes. Pulse 64 11/17/2012 1:01 PM CLINICAL RESEARCH ADMINISTRATOR Vital sign result from Clinical Notes. Temperature - - Respiratory Rate - - Oxygen Saturation - - Inhaled Oxygen Concentration - - Weight 71.8 kg (158 lb 4.6 oz) 11/17/2012 1:01 PM CLINICAL RESEARCH ADMINISTRATOR Vital sign result from Clinical Notes. Height 156.5 cm (5' 1.61) 11/17/2012 1 :01 PM CLINICAL RESEARCH ADMINISTRATOR Vital sign result from Clinical Notes. Body Mass Index 29.32 11/17/2012 1:01 PM CLINICAL RESEARCH ADMINISTRATOR Plan of Treatment Not on file Procedures Procedure Name Priority Date/Time Associated Diagnosis Comments BI BREAST SCREENING UNILATERAL Routine 10/18/2008 9:21 AM CLINICAL RESEARCH ADMINISTRATOR from Last 3 Months or Most Recently Relevant to Health Maintenance Results * BI Breast Screening (10/18/2008 9:21 AM CLINICAL RESEARCH ADMINISTRATOR) Anatomical Region Laterality Modality Breast N/A Mammography 10/18/2008 9:21 AM CLINICAL RESEARCH ADMINISTRATOR Narrative 10/18/2008 1:25 PM CLINICAL RESEARCH ADMINISTRATOR 18-Oct-2008 09:21:00 ??Exam: MG /Screening Exam Indications: mammogram screening breast ca ORIGINAL REPORT - 18-Oct-2008 13:25:00 EXAM: Bilateral digital screening mammogram. Computer-aided detection equipment was used during interpretation. ?? COMPARISON: Prior [facility] mammograms. DENSITY: Heterogeneously dense, which could obscure detection of small masses. FINDINGS: No mammographic findings of malignancy. RECOMMENDATION: Annual screening mammography. ASSESSMENT: Negative. ??P1, D3, M1, L1S Electronically signed by: ?? Elli Hanna MD [id number] 18-Oct-2008 13:25 Procedure Note Ramírez Hanna M.D. - 12/19/2017 18-Oct-2008 09:21:00 Exam: MG /Screening Exam Indications: mammogram screening breast ca ORIGINAL REPORT - 18-Oct-2008 13:25:00 EXAM: Bilateral digital screening mammogram. Computer-aided detection equipment was used during interpretation. COMPARISON: Prior [facility] mammograms. DENSITY: Heterogeneously dense, which could obscure detection of smallmasses. FINDINGS: No mammographic findings of malignancy. RECOMMENDATION: Annual screening mammography. ASSESSMENT: Negative. P1, D3, M1, L1S Electronically signed by: Elli Hanna MD [id number] 18-Oct-2008 13:25 Historical Provider IMG BI PROCEDURES from Last 3 Months or Most Recently Relevant to Health Maintenance Care Teams Country Printer Apprentice Relationship Specialty Start Date End Date Elsewhere, Pcp PCP - General 09/02/18
--- OUTSIDE RECORDS SUMMARY | 2024-01-10 14:44 | XMS_ITS | Clinical Summary ---
Author Name Unknown Organization [facility] Address [address] [place] [address] Care Team Providers Care Belt Maker Helper Name Role Phone Elsewhere, Pcp Primary Care Provider Unavailabl e Source Comments Patient records contain information from all sites at [facility]. For routine questions regarding patient records, call [phone] during business hours, M-F 8:00 AM - 5:00 PM Central Time. Record requests for emergency care only can be directed to [phone] at any time.[facility] Encounters Date Type Department Care Team Description 11/04/2023 1:00 PM KEY CARRIER Clinical Support Department of Integrative Medicine in [address] [phone] Ирина Franks M.D. Hoffman, Michele R Discharge Disposition: Home or Self Care 10/21/2023 2:30 PM KEY CARRIER Clinical Support Department of Integrative Medicine in [address] [phone] Ирина Franks M.D. Hoffman, Michele R Discharge [...] Comments Blood Pressure 121/69 11/17/2012 1:01 PM KEY CARRIER Vital sign result from Clinical Notes. Pulse 64 11/17/2012 1:01 PM KEY CARRIER Vital sign result from Clinical Notes. Temperature - - Respiratory Rate - - Oxygen Saturation - - Inhaled Oxygen Concentration - - Weight 71.8 kg (158 lb 4.6 oz) 11/17/2012 1:01 PM KEY CARRIER Vital sign result from Clinical Notes. Height 156.5 cm (5' 1.61) 11/17/2012 1 :01 PM KEY CARRIER Vital sign result from Clinical Notes. Body Mass Index 29.32 11/17/2012 1:01 PM KEY CARRIER Plan of Treatment Health Maintenance Due Date Last Done Comments CT Colonography 1964 Cervical Cancer Screening 1964 Cologuard 1964 Colonoscopy 1964 Colorectal Cancer Screening 1964 FIT 1964 Fasting Glucose for Diabetes Screening 1964 HIV Screening 1964 Hepatitis C Screening 1964 Lipid (Cholesterol) Screening 1964 Hepatitis B Vaccines (1 of 3 - 19+ 3-dose series) 02/06/1983 Mammogram 10/18/2009 10/18/2008, 12/19/2007 Zoster Vaccines (1 of 2) 02/06/2014 COVID-19 Vaccine (3 - Pfizer risk series) 05/17/2021 04/19/2021, 03/29/2021 Influenza Vaccine (#1) 2023 Depression Screening (Annual PHQ-2) 09/20/2023 DTaP,Tdap,and Td Vaccines (2 - Td or Tdap) 01/25/2029 01/25/2019 Pneumococcal vaccine (0-64 years) Aged Out No longer eligible b ased on patient's age to complete this topic Procedures Procedure Name Priority Date/Time Associated Diagnosis Comments BI BREAST SCREENING UNILATERAL Routine 10/18/2008 9:21 AM KEY CARRIER from Last 3 Months or Most Recently Relevant to Health Maintenance Results * BI Breast Screening (10/18/2008 9:21 AM KEY CARRIER) Anatomical Region Laterality Modality Breast N/A Mammography 10/18/2008 9:21 AM KEY CARRIER Narrative 10/18/2008 1:25 PM KEY CARRIER 18-Oct-2008 09:21:00 ??Exam: MG /Screening Exam Indications: mammogram screening breast ca ORIGINAL REPORT - 18-Oct-2008 13:25:00 EXAM: Bilateral digital screening mammogram. Computer-aided detection equipment was used during interpretation. ?? COMPARISON: Prior [facility] mammograms. DENSITY: Heterogeneously dense, which could obscure [...] equipment was used during interpretation. COMPARISON: Prior [facility] mammograms. DENSITY: Heterogeneously dense, which could obscure detection of smallmasses. FINDINGS: No mammographic findings of malignancy. RECOMMENDATION: Annual screening mammography. ASSESSMENT: Negative. P1, D3, M1, L1S Electronically signed by: Elli Hanna MD [id number] 18-Oct-2008 13:25 Historical Provider IMG BI PROCEDURES from Last 3 Months or Most Recently Relevant to Health Maintenance Care Teams Belt Maker Helper Relationship Specialty Start Date End Date Elsewhere, Pcp PCP - General 09/02/18
--- OUTSIDE RECORDS SUMMARY | 2024-01-10 14:45 | XMS_ITS | Clinical Summary ---
Author Name Unknown Organization [facility] Address [address] [place] [address]. [place] [address] Care Team Providers Care Tea Tree Farmer Name Role Phone Tayo Do MD Unavailable [phone] Nayely Coronado MD Unavailable [phone] Allergies Active Allergy Reactions Criticality Noted Date Comments Penicillin V High 08/12/2020 Other reaction(s): diarrhea and rash Sulfa Antibiotics 08/12/2020 Medications Medication Sig Dispensed Refills Start Date End Date Status cholecalciferol (VITAMIN D3) 25 mcg (1000 units) capsule Daily Active Active Problems Problem Noted Date Diagnosed Date Endometrial cancer 01/14/2021 Overview: Added automatically from request for surgery [id number] Encounters Date Type Department Care Team Description 01/03/2024 Transcribe Orders GENERIC EXTERNAL DATA DEPARTMENT Provider, Generic External Data Other symptoms and signs involving appearance and behavior (Primary Dx); Diarrhea, unspecified; Flushing; Other general symptoms and signs; Sleep deprivation 12/31/2023 Medical Correspondence [facility] [address] [place] [phone] Scan, Non-Provider from Last 3 Months Family History Medical History Relation Comments Prostate Cancer Father Pancreatic Cancer Mother Breast Cancer No family hx of Colon Cancer No family hx of Uterine Cancer No family hx of Relation Status Comments Father Mother Social History Tobacco Use Types Packs/Day Years Used Date Smoking Tobacco: Never Smokeless Tobacco: Never Alcohol Use Standard Drinks/Week Comments Yes 0 (1 standard drink = 0.6 oz pur e alcohol) Social drinker Adolescent Education Answer Date Record ed Getting School Help Needed Not on file 07/06 Sex and Gender Information Value Date Recorded Sex Assigned at Not on file Gender Identity Female 03/26/2021 12:50 PM CDT Sexual Orientation Straight 03/26/2021 12 :50 PM CDT Last Filed Vital Signs Vital Sign Reading Time Taken Comments Blood Pressure 106/71 04/09/2021 10:52 AM CDT Pulse 59 04/09/2021 10:52 AM CDT Temperature 37.2 ??C (99 ??F) 04/09/2021 10:52 AM CDT Respiratory Rate 16 04/09/2021 10:52 AM CDT Oxygen Saturation 99% 04/09/2021 10:52 AM CDT Inhaled Oxygen Concentration - - Weight 64.9 kg (143 lb) 04/09/2021 10:52 AM CDT Height - - Body Mass Index - - Plan of Treatment Health Maintenance Due Date Last Done Comments ADVANCE CARE PLANNING 1965 ANNUAL REVIEW OF HM ORDERS 1964 CT COLONOGRAPHY 1964 FIT 1964 FLEX SIG 1964 MAMMO SCREENING 1964 YEARLY PREVENTIVE VISIT 1964 sDNA (Cologuard) 1965 COLONOSCOPY 02/06/1974 COLORECTAL CANCER SCREENING 02/06/1974 HIV SCREENING 02/06/1979 HEPATITIS C SCREENING 02/06/1982 HEPATITIS B IMMUNIZATION (1 of 3 - 19+ 3-dose series) 02/06/1983 PAP 02/06/1985 LIPID 2004 ZOSTER IMMUNIZATION (1 of 2) 02/06/2014 COVID-19 Vaccine (3 - 2022-2 4 season) 2023 04/19/2021, 03/29/2021 INFLUENZA VACCINE (#1) 2023 PHQ-2 (once per calendar year) 2023 GLUCOSE 09/05/2024 09/05/2021, 03/28/2021 DTAP/TDAP/TD IMMUNIZATION (2 - Td or Tdap) 01/25/2029 01/25/2019 HPV IMMUNIZATION Aged Out No longer e ligible based on patient's age to complete this topic IPV IMMUNIZATION Aged Out No longer e ligible based on patient's age to complete this topic MENINGITIS IMMUNIZATION Aged Out No l onger eligible based on patient's age to complete this topic Pneumococcal Vaccine: Pediatrics (0 to 5 Years) and At-Risk Patients (6 to 64 Years) Aged Out No longer eligible b ased on patient's age to complete this topic RSV MONOCLONAL ANTIBODY Aged Out No l onger eligible based on patient's age to complete this topic Procedures Procedure Name Priority Date/Time Associated Diagnosis Comments LAB RESULT - HIM SCAN 12/31/2023 12:00 AM CDT GLUCOSE WHOLE BLOOD POCT Routine 09/05/2021 10:45 AM AIR DEFENSE CONTROL OFFICER Endometrial sarcoma (H) from Last 3 Months or Most Recently Relevant to Health Maintenance Results * Lab Result - HIM Scan (12/31/2023 12:00 AM CDT) 12/31/2023 Provider Outside NON-BEAKER LAB TE STING * Glucose Whole Blood POCT (09/05/2021 10:45 AM AIR DEFENSE CONTROL OFFICER) Glucose 84 70 - 99 mg/dL Whole blood 09/05/2021 10:4 5 AM AIR DEFENSE CONTROL OFFICER Nataly Bartlett MD LAB - ENTER/ EDIT POCT from Last 3 Months or Most Recently Relevant to Health Maintenance Care Teams Tea Tree Farmer Relationship Specialty Start Date End Date Tayo Do MD [address] [place] [address] carpenter ship 01/06/21 Nayely Coronado MD [address] [place] [address] Gynecologic Oncology 01/06/21
--- OUTSIDE RECORDS SUMMARY | 2024-01-10 14:45 | XMS_ITS | Encounter Summary ---
Author Name Unknown Organization [facility] Address [address] [place] [address] Care Team Providers Care Customs And Border Protection Inspector Name Role Phone Tayo Do MD Unavailable [phone] Nayely Coronado MD Unavailable [phone] Nayely Coronado MD Unavailable [phone] Simón Holland MD Unavailable [phone] Yvette Padron MD Primary Care Provider [phone] Encounter Details Date Type Department Care Team (Late st Contact Info) Description 01/29/2021 [facility] Medical Advice [facility] [address] [place] [phone] Laura English Social History Tobacco Use Types Packs/Day Years Used Date Smoking Tobacco: Never Smokeless Tobacco: Never Alcohol Use Standard Drinks/Week Comments Yes 0 (1 standard drink = 0.6 oz pur e alcohol) Social drinker Sex and Gender Information Value Date Recorded Sex Assigned at Not on file Gender Identity Female 03/26/2021 12:50 PM CDT Sexual Orientation Straight 03/26/2021 12 :50 PM CDT COVID-19 Exposure Response Date Recorded In the last month, have you been in contact with someone who was confirmed or suspected to have Coronavirus / COVID-19? No / Unsure 01/14/2021 9:32 AM CDT documented as of this encounter Plan of Treatment Not on file documented as of this encounter Visit Diagnoses Not on filedocumented in this encounter Care Teams Customs And Border Protection Inspector Relationship Specialty Start Date End Date Yvette Padron MD [address] [address] PCP - General Family Medicine 03/31/23 10/19/23 [place] [address] [place] [address] medical authorization specialist 01/06/21 Nayely Coronado MD [address] [place] [address] Gynecologic Oncology 01/06/21 Nayely Coronado MD [address] [place] [address] Assigned Cancer Care Provider 02/16/21 04/01/21 Simón Holland MD [address] [place] [address] Assigned Cancer Care Provider 04/04/21 10/09/22 documented as of this encounter
--- OUTSIDE RECORDS SUMMARY | 2024-01-10 14:45 | XMS_ITS | Encounter Summary ---
Author Name Unknown Organization [facility] Address [address] [place] [address] Care Team Providers Care Automatic Grinder Operator Name Role Phone Tayo Do MD Unavailable [phone] Nayely Coronado MD Unavailable [phone] Nayely Coronado MD Unavailable [phone] Simón Holland MD Unavailable [phone] Yvette Padron MD Primary Care Provider [phone] Encounter Details Date Type Department Care Team (Late st Contact Info) Description 03/28/2021 [facility] Medical Advice [facility] [address] [place] [address] Yvette James, RN Social History Tobacco Use Types Packs/Day Years [...] have Coronavirus / COVID-19? No / Unsure 03/28/2021 11:48 AM CDT documented as of this encounter Plan of Treatment Not on file documented as of this encounter Visit Diagnoses Not on filedocumented in this encounter Care Teams Automatic Grinder Operator Relationship Specialty Start Date End Date Yvette Padron MD [address] [address] PCP - General Family Medicine 03/31/23 10/19/23 [place] [address] [place] [address] tobacco drying machine operator 01/06/21 Nayely Coronado MD [address] [place] [address] Gynecologic Oncology 01/06/21 Nayely Coronado MD [address] [place] [address] Assigned Cancer Care Provider 02/16/21 04/01/21 Simón Holland MD [address] [place] [address] [id number] Assigned Cancer Care Provider 04/04/21 10/09/22 documented as of this encounter
--- OUTSIDE RECORDS SUMMARY | 2024-01-10 14:45 | XMS_ITS | Encounter Summary ---
Author Name Unknown Organization [facility] Address [address] [place] [address] Care Team Providers Care Bus Assistant Name Role Phone Tayo Do MD Unavailable [phone] Nayely Coronado MD Unavailable [phone] Reason for Referral * Consultation (Routine) - Pending Review Specialty Diagnoses / Procedures Referred By Contac t Referred To Contact Endocrinology, Diabetes, and Metabolism Diagnoses Other symptoms and signs involving appearance and behavior Diarrhea, unspecified Flushing Other general symptoms and signs Sleep deprivation Yvette Padron MD [facility] [address] [address] Referral ID Status Reason Start Date Expiration Date V isits Requested Visits Authorized [id number] Pending Review 01/03/2024 01/02/2025 1 1 Question Answer Reason for Referral: Other My Clinical Question Is: Sparse eyebrow, diarrhea, flushing, cold intolerance, poor sleep Scheduling Instructions: [facility] will call you to coordinate your care as prescribed by the provider. If you don? t hear from a tax representative within 2 business days, please call [phone]. Comments Referral Transcribed by external fax Provider: Yvette Padron MD affiliated with [facility] at [place]. [facility]: No If yes was is the [facility] Authorization Number: Phone number: [phone] Fax number: [phone] [facility] will call you to coordinate your care as prescribed by the provider. If you don? t hear from a tax representative within 2 business days, please call [phone]. Encounter Details Date Type Department Care Team (Late st Contact Info) Description 01/03/2024 Transcribe Orders GENERIC EXTERNAL DATA DEPARTMENT Provider, Generic External Data Other symptoms and signs involving appearance and behavior (Primary Dx); Diarrhea, unspecified; Flushing; Other general symptoms and signs; Sleep deprivation Social History Tobacco Use Types Packs/Day Years [...] Orientation Straight 03/26/2021 12 :50 PM CDT documented as of this encounter Plan of Treatment Scheduled Referrals Name Type Priority Associated Diagnoses Orde r Schedule Adult Endocrinology Plastic Outfitter Referral Referral Routine Other symptoms and signs involving appearance and behavior Diarrhea, unspecified Flushing Other general symptoms and signs Sleep deprivation Expected: 01/03/2024 (Approximate), Expires: 01/02/2025 documented as of this encounter Visit Diagnoses Diagnosis Other symptoms and signs involving appearance and behavior- Primary Diarrhea, unspecified Flushing Other general symptoms and signs Sleep deprivation Problems related to lack of adequate sleep documented in this encounter Care Teams Bus Assistant Relationship Specialty [place] [address] [place] [address] director dance 01/06/21 Nayely Coronado MD [address] [place] [address] Gynecologic Oncology 01/06/21 documented as of this encounter
--- OUTSIDE RECORDS SUMMARY | 2024-01-10 14:45 | XMS_ITS | Encounter Summary ---
Author Name Unknown Organization [facility] Address [address] [place] [address] Care Team Providers Care Paint Specialist Name Role Phone Tayo Do MD Unavailable [phone] Nayely Coronado MD Unavailable [phone] Nayely Coronado MD Unavailable [phone] Simón Holland MD Unavailable [phone] Yvette Padron MD Primary Care Provider [phone] Encounter Details Date Type Department Care Team (Late st Contact Info) Description 03/26/2021 MyC Medical Advice [facility] [address] [place] [phone] Yvette James, RN Social History Tobacco [...] on filedocumented in this encounter Care Teams Paint Specialist Relationship Specialty Start Date End Date Yvette Padron MD [address] [address] PCP - General Family Medicine 03/31/23 10/19/23 [place] [address] [place] [address] safety attendant 01/06/21 Nayely Coronado MD [address] [place] [address] Gynecologic Oncology 01/06/21 Nayely Corondao MD [address] [place] [address] Assigned Cancer Care Provider 02/16/21 04/01/21 Simón Holland MD [address] [place] [address] 108425 Assigned Cancer Care Provider 04/04/21 10/09/22 documented as of this encounter
--- OUTSIDE RECORDS SUMMARY | 2024-01-10 14:45 | XMS_ITS | Encounter Summary ---
Author Name Unknown Organization [facility] Address [address] [place] [address] Care Team Providers Care Administrator Pesticide Name Role Phone Tayo Do MD Unavailable [phone] Nayely Coronado MD Unavailable [phone] Simón Holland MD Unavailable [phone] Yvette Padron MD Primary Care Provider [phone] Encounter Details Date Type Department Care Team (Late st Contact Info) Description 04/07/2021 [facility] Adv[facility] [address] [place] [phone] Yvette James, RN Social History Tobacco [...] have Coronavirus / COVID-19? No / Unsure 04/09/2021 10:33 AM CDT documented as of this encounter Plan of Treatment Not on file documented as of this encounter Visit Diagnoses Not on filedocumented in this encounter Care Teams Administrator Pesticide Relationship Specialty Start Date End Date Yvette Padron MD [address] [address] PCP - General Family Medicine 03/31/23 10/19/23 [place] [address] [place] [address] paint line production supervisor 01/06/21 Nayely Coronado MD [address] [place], [place] [address] Gynecologic Oncology 01/06/21 Simón Holland MD [address] [place] [address] [id number] Assigned Cancer Care Provider 04/04/21 10/09/22 documented as of this encounter
--- OUTSIDE RECORDS SUMMARY | 2024-01-10 14:45 | XMS_ITS | Encounter Summary ---
Author Name Unknown Organization [facility] Address [address] [place] [address] Care Team Providers Care Correction Officer [place] [facility] Name Role Phone Tayo Do MD Unavailable [phone] Nayely Coronado MD Unavailable [phone] Nayely Coronado MD Unavailable [phone] Simón Holland MD Unavailable [phone] Yvette Padron MD Primary Care Provider [phone] Encounter Details Date Type Department Care Team (Late st Contact Info) Description 03/28/2021 MyC Medical Advice [facility] [address] [place] [phone] Yvette James, RN Social History Tobacco [...] on filedocumented in this encounter Care Teams Correction Officer [place] [facility] Relationship Specialty Start Date End Date Yvette Padron MD [address] [address] PCP - General Family Medicine 03/31/23 10/19/23 [place] [address] [place] [address] home health caregiver 01/06/21 Nayely Coronado MD [address] [place] [address] Gynecologic Oncology 01/06/21 Nayely Coronado MD [address] [place] [address] Assigned Cancer Care Provider 02/16/21 04/01/21 Simón Holland MD [address] [place] [address]555 Assigned Cancer Care Provider 04/04/21 10/09/22 documented as of this encounter
--- OUTSIDE RECORDS SUMMARY | 2024-01-10 14:45 | XMS_ITS | Encounter Summary ---
Author Name Unknown Organization [facility] Address [address] [place] [address] Care Team Providers Care Horticultural Specialty Grower Inside Name Role Phone Tayo Do MD Unavailable [phone] Nayely Coronado MD Unavailable [phone] Simón Holland MD Unavailable [phone] Yvette Padron MD Primary Care Provider [phone] Encounter Details Date Type Department Care Team (Late st Contact Info) Description 04/02/[address] [facility] [address] [place] [phone] [facility] Social History Tobacco Use Types Packs/Day Years [...] have Coronavirus / COVID-19? No / Unsure 04/02/2021 3:43 PM CDT documented as of this encounter Plan of Treatment Not on file documented as of this encounter Visit Diagnoses Not on filedocumented in this encounter Care Teams Horticultural Specialty Grower Inside Relationship Specialty Start Date End Date Yvette Padron MD [address] [address] PCP - General Family Medicine 03/31/23 10/19/23 Tayo Do MD [address] [place] [address] 01/06/21 Nayely Coronado MD [address] [place] [address] Gynecologic Oncology 01/06/21 Simón Holland MD [address] [place] [address] Assigned Cancer Care Provider 04/04/21 10/09/22 documented as of this encounter
--- OUTSIDE RECORDS SUMMARY | 2024-01-10 14:45 | XMS_ITS | Encounter Summary ---
Author Name Unknown Organization [facility] Address [address] [place] [address]. [place] [address] Care Team Providers Care Qualifications Examiner Name Role Phone Tayo Do MD Unavailable [phone] Nayely Coronado MD Unavailable [phone] Encounter Details Date Type Department Care Team ([facility] st Contact Info) Description 12/31/[address] [facility] Info [facility] [address] [place] [phone] Scan, Non-Provider Social History Tobacco Use Types Packs/Day Years [...] on filedocumented in this encounter Care Teams Qualifications Examiner Relationship Specialty Start Date End Date Tayo Do MD [address] [place] [address] marketing systems manager 01/06/21 Nayely Coronado MD [address] [place] [address] Gynecologic Oncology 01/06/21 documented as of this encounter
--- OUTSIDE RECORDS SUMMARY | 2024-01-10 14:45 | XMS_ITS | Encounter Summary ---
Author Name Unknown Organization [facility] Address [address] [place] [address] Care Team Providers Care Jig Builder Name Role Phone Tayo Do MD Unavailable [phone] Nayely Coronado MD Unavailable [phone] Nayely Coronado MD Unavailable [phone] Simón Holland MD Unavailable [phone] Yvette Padron MD Primary Care Provider [phone] Encounter Details Date Type Department Care Team (Late st Contact Info) Description 03/21/2021 [facility] Medical Advice [facility] [address] [place] [phone] Yvette James, RN Social History Tobacco [...] on filedocumented in this encounter Care Teams Jig Builder Relationship Specialty Start Date End Date Yvette Padron MD [address] [address] PCP - General Family Medicine 03/31/23 10/19/23 Tayo Do MD [address] [place] [address] what job titles mean 01/06/21 Nayely Coronado MD [address] [place] [address] 335535 Gynecologic Oncology 01/06/21 Nayely Coronado MD [address] [place] [address] 296755 Assigned Cancer Care Provider 02/16/21 04/01/21 Simón Holland MD [address] [place] [address] 244855 Assigned Cancer Care Provider 04/04/21 10/09/22 documented as of this encounter
--- OUTSIDE RECORDS SUMMARY | 2024-01-10 14:45 | XMS_ITS | Encounter Summary ---
Author Name Unknown Organization [facility] Address [address] [place] [address] Care Team Providers Care Bioinformatics Associate Name Role Phone Tayo Do MD Unavailable [phone] Nayely Coronado MD Unavailable [phone] Yvette Padron MD Primary Care Provider [phone] Encounter Details Date Type Department Care Team (Late st Contact Info) Description 05/20/2023 [facility] [address] [place] [phone] [facility] Social History Tobacco Use Types Packs/Day Years [...] on filedocumented in this encounter Care Teams Bioinformatics Associate Relationship Specialty Start Date End Date Yvette Padron MD [address] [address] PCP - General Family Medicine 03/31/23 10/19/23 Tayo Do MD [address] [place] [address] rawhide bone roller 01/06/21 Nayely Coronado MD [address] [place] [address] Gynecologic Oncology 01/06/21 documented as of this encounter
--- OUTSIDE RECORDS SUMMARY | 2024-01-10 14:45 | XMS_ITS | Encounter Summary ---
Author Name Unknown Organization [facility] Address [address] [place] [address] Care Team Providers Care Efficiency Engineer Name Role Phone Brendan Weiss MD Unavailable [phone] Frw, None Primary Care Provider Unavailabl e Encounter Details Date Type Department Care Team (Late st Contact Info) Description 06/26/2009 2:21 PM CDT [facility] [address] [place] [phone] Luigi Penn MD [address] [address] Social History Tobacco Use Types Packs/Day Years [...] on filedocumented in this encounter Care Teams Efficiency Engineer Relationship Specialty Start Date End Date Brendan Weiss MD [address] [place] [address] PCP - Surgery 01/23/08 08/20/14 Frw, None PCP - General 01/23/08 05/20/17 documented as of this encounter
--- OUTSIDE RECORDS SUMMARY | 2024-01-10 14:45 | XMS_ITS | Referral Summary ---
Author Name Unknown Organization [facility] Address [address] [place] [address]. [place] [address] Care Team Providers Care Bit Sander Name Role Phone Tayo Do MD Unavailable [phone] Nayely Coronado MD Unavailable [phone] Encounters Date Type Department Care Team Description 01/03/2024 Transcribe Orders GENERIC EXTERNAL DATA DEPARTMENT Provider, Generic External Data Other symptoms and signs involving appearance and behavior (Primary Dx); Diarrhea, unspecified; Flushing; Other general symptoms and signs; Sleep deprivation 12/31/2023 Medical Correspondence [facility] [address] [place] [phone] Scan, Non-Provider from Last 3 Months Allergies Active Allergy Reactions Criticality Noted Date Comments Penicillin V High 08/12/2020 Other reaction(s): diarrhea and rash Sulfa Antibiotics 08/12/2020 Medications Medication Sig Dispensed Refills Start Date End Date Status cholecalciferol (VITAMIN D3) 25 mcg (1000 units) capsule Daily Active Active Problems Problem Noted Date Diagnosed Date Endometrial cancer 01/14/2021 Overview: Added automatically from request for surgery [id number] Social History Tobacco Use Types Packs/Day Years [...] Mass Index - - Plan of Treatment Not on file Procedures Procedure Name Priority Date/Time Associated Diagnosis Comments LAB RESULT - HIM SCAN 12/31/2023 12:00 AM CDT GLUCOSE WHOLE BLOOD POCT Routine 09/05/2021 10:45 AM LEGAL CONSULTANT Endometrial sarcoma (H) from Last 3 Months or Most Recently Relevant to Health Maintenance Results * Lab Result - HIM Scan (12/31/2023 12:00 AM CDT) 12/31/2023 Provider Outside NON-BEAKER LAB TE STING * Glucose Whole Blood POCT (09/05/2021 10:45 AM LEGAL CONSULTANT) Glucose 84 70 - 99 mg/dL Whole blood 09/05/2021 10:4 5 AM LEGAL CONSULTANT Nataly Bartlett MD LAB - ENTER/ EDIT POCT from Last 3 Months or Most Recently Relevant to Health Maintenance Care Teams Bit Sander Relationship Specialty [place] [address] [place] [address] blood typer 01/06/21 Nayely Coronado MD [address] [place] [address] Gynecologic Oncology 01/06/21
--- OUTSIDE RECORDS SUMMARY | 2024-01-10 14:45 | XMS_ITS | Encounter Summary ---
Author Name Unknown Organization [facility] Address [address] [place] [address] Care Team Providers Care Container Coordinator Name Role Phone Tayo Do MD Unavailable [phone] Nayely Coronado MD Unavailable [phone] Nayely Coronado MD Unavailable [phone] Simón Holland MD Unavailable [phone] Yvette Padron MD Primary Care Provider [phone] Encounter Details Date Type Department Care Team (Late st Contact Info) Description 01/14/[address] [facility] [address] [place] [id number] Yvette James, RN Social History Tobacco [...] on filedocumented in this encounter Care Teams Container Coordinator Relationship Specialty Start Date End Date Yvette Padron MD [address] [address] PCP - General Family Medicine 03/31/23 10/19/23 [place] [address] [place] [id number] airline station agent 01/06/21 Nayely Coronado MD [address] [place] [address] Gynecologic Oncology 01/06/21 Nayely Coronado MD [address] [place] [id number] Assigned Cancer Care Provider 02/16/21 04/01/21 Simón Holland MD [address] [place] [phone] Assigned Cancer Care Provider 04/04/21 10/09/22 documented as of this encounter
--- OUTSIDE RECORDS SUMMARY | 2024-01-10 14:45 | XMS_ITS | Encounter Summary ---
Author Name Unknown Organization [facility] Address [address] [place] [address] Care Team Providers Care Photonics Technician Name Role Phone Tayo Do MD Unavailable [phone] Nayely Coronado MD Unavailable [phone] Simón Holland MD Unavailable [phone] Yvette Padron MD Primary Care Provider [phone] Encounter Details Date Type Department Care Team (Late st Contact Info) Description 08/26/2021 [facility] [address] [place] [phone] Simón Holland MD [address] [place] [address] Social History Tobacco Use Types Packs/Day Years [...] on filedocumented in this encounter Care Teams Photonics Technician Relationship Specialty Start Date End Date Yvette Padron MD [address] [address] PCP - General Family Medicine 03/31/23 10/19/23 Tayo Do MD [address] [place] [address] [employer] senior specialist 01/06/21 Nayely Coronado MD [address] [place] [address] Gynecologic Oncology 01/06/21 Simón Holland MD [address] [place] [address] Assigned Cancer Care Provider 04/04/21 10/09/22 documented as of this encounter
== END 2024-01-10 14:42 | disposition home or self-care (01) ==
PROVIDERS: PCP Family Medicine; Visit Provider Family Medicine
DX: R00.1 Bradycardia, unspecified (principal); I35.1 Nonrheumatic aortic (valve) insufficiency; I34.0 Nonrheumatic mitral (valve) insufficiency
CPT/HCPCS: 93306

== ENCOUNTER 2025-07-18 08:31 | Outpatient (CLI) | payer OTHER, SELFPAY ==
--- NOTE | 2025-07-18 09:15 | CRLHL7_ITS ---
For Patients: As a result of the Century Cures Act, medical imaging exams and procedure reports are released immediately into your electronic medical record. You may view this report before your referring provider. If you have questions, please contact your health care provider. INDICATION: Pain in left lower leg TECHNIQUE: Ultrasound venous duplex lower left extremity. Compression venous exam was performed using ayala-scale, color Doppler, and spectral Doppler analysis. COMPARISON: None. FINDINGS: Deep veins: Sonographic imaging demonstrates the left common femoral, deep femoral, superficial femoral, popliteal, posterior tibial and the contralateral right common femoral veins to be fully compressible with normal color Doppler blood flow. Superficial veins: Greater saphenous vein is fully compressible. No popliteal cyst. IMPRESSION: Normal left lower extremity venous ultrasound, no sign of deep venous thrombosis. Dictated by Rosy Murray MD @ 07/18/2025 9:10:12 AM (Electronically Signed)
--- NOTE | 2025-07-18 09:15 | CRLHL7_ITS ---
For Patients: As a result of the Century Cures Act, medical imaging exams and procedure reports are released immediately into your electronic medical record. You may view this report before your referring provider. If you have questions, please contact your health care provider. CLINICAL HISTORY: Flank pain COMPARISON: CT 08/09/2021 TECHNIQUE: Real time ayala scale imaging and color Doppler analysis was performed of the abdomen. FINDINGS: Sonographic imaging demonstrates normal size and uniform echotexture of the liver. The spleen is of normal size. The pancreas appears normal. The proximal abdominal aorta and IVC appear normal. There is no evidence of ascites. The gallbladder is of normal size and there is no evidence of sludge or stones within the gallbladder lumen. The gallbladder wall measures 1 mm in thickness. The common bile duct measures 5 mm in size within the wanda hepatis. Right renal calculus is present which measures 7 millimeters. No hydronephrosis. The right kidney measures 11.9 cm in length and the left kidney measures 10.7 cm. IMPRESSION: Nonobstructing right renal stone. Remainder unremarkable. Dictated by Edward Almaraz MD @ 07/18/2025 11:34:43 AM (Electronically Signed)
== END 2025-07-18 08:32 | disposition home or self-care (01) ==
PROVIDERS: PCP Family Medicine; Visit Provider Family Medicine
DX: M79.662 Pain in left lower leg (principal); R10.A0 Flank pain, unspecified side; N20.0 Calculus of kidney; Z00.00 Encounter for general adult medical examination without abnormal findings; R10.12 Left upper quadrant pain
CPT/HCPCS: 76700; 80053; 93971